=== PATIENT | male | born 1985 | race Caucasian/White ===

== ENCOUNTER 2021-04-16 21:15 | Emergency (ER) | payer SELFPAY | END 2021-04-16 22:05 | disposition home or self-care (01) | LOC: ER1 21:15 | DX: S61.412A Laceration without foreign body of left hand, initial encounter (principal); F17.200 Nicotine dependence, unspecified, uncomplicated; W45.8XXA Other foreign body or object entering through skin, initial encounter | CPT/HCPCS: 73130; 99283 ==